=== PATIENT | male | born 1995 | race African-American/Black ===

== ENCOUNTER 2021-11-27 09:41 | Emergency (ER) | payer OTHER ==
[2021-11-27 09:49] VITALS: BP 142/96; PULSE 89; RESP 17; TEMP 98.3; BMI 41.2
== END 2021-11-27 11:05 | disposition home or self-care (01) ==
LOC: JERFT 09:41 → JER 09:41 → JERFT 11:05
DX: H92.01 Otalgia, right ear (principal)
CPT/HCPCS: 99283-25